=== PATIENT | male | born 1935 | race Two or more races ===

== ENCOUNTER 2023-06-20 08:55 | Outpatient (CLI) | payer OTHER | END 2023-06-20 09:12 | disposition home or self-care (01) | LOC: SONOGRAMA 08:55 | PROVIDERS: ATTEND Anesthesiology | DX: N40.1 Benign prostatic hyperplasia with lower urinary tract symptoms (principal) ==

== ENCOUNTER 2023-07-11 14:25 | Outpatient (CLI) | payer OTHER | END 2023-07-11 14:37 | disposition home or self-care (01) | LOC: TOM 14:25 | PROVIDERS: ATTEND Urology | DX: C67.1 Malignant neoplasm of dome of bladder (principal) ==

== ENCOUNTER 2023-09-24 11:36 | Emergency (ER) | payer OTHER ==
[~2023-09-24] VITALS: Ht 172.7 cm; Wt 79.4 kg
[2023-09-24] MEDS ORDERED: LOSARTAN POTASS50 MG PO (12:00)
[2023-09-24] MEDS ORDERED: CALTRATE 600 +1 EAC1 PO (12:00)
[2023-09-24] MEDS ORDERED: ELIQUIS5 MG PO (12:00)
[2023-09-24] MEDS ORDERED: PANTOPRAZOLE SO40 M2 PO (12:00)
[2023-09-24] MEDS ORDERED: CRESTOR5 MG PO (12:01)
[2023-09-24] MEDS ORDERED: DULOXETINE HCL40 MG PO (12:01)
[2023-09-24] MEDS ORDERED: LEVOTHYROXINE13 MCG PO (12:01)
[2023-09-24] MEDS ORDERED: AMLODIPINE-OLM1 EAC2 PO (12:02)
[2023-09-24] MEDS ORDERED: HYDRODIURIL12.5 MG PO (12:02)
[2023-09-24 13:07] LABS: HEMATOCRIT 34.3 % (39.0-48.0); HEMOGLOBIN 11.6 g/dL (13-16.00); MEAN CELL VOLUME 93.4 fL (80.0-100.00); MEAN CORPUSCULAR HEMOGLOBIN 31.6 pg (27.00-32.0); MEAN CORPUSCULAR HGB CONC 33.9 g/dl (32.0-36.0); PLATELET COUNT 328 K/uL (150-450); RED BLOOD COUNT 3.67 M/uL (4.00-6.00); RED CELL DISTRIBUTION WIDTH 13.7 % (11.5-14.5)
== END 2023-09-24 15:50 | disposition home or self-care (01) ==
LOC: ER 11:37
PROVIDERS: General Practice
DX: S50.01XA Contusion of right elbow, initial encounter (principal); S70.01XA Contusion of right hip, initial encounter; S00.93XA Contusion of unspecified part of head, initial encounter; W19.XXXA Unspecified fall, initial encounter; Y93.89 Activity, other specified; Y92.89 Other specified places as the place of occurrence of the external cause; Y99.8 Other external cause status; I10 Essential (primary) hypertension

== ENCOUNTER 2023-10-12 10:18 | Outpatient (CLI) | payer OTHER ==
[~2023-10-12 10:18] MED LIST: AMLODIPINE-OLM1 EAC2 PO; CALTRATE 600 +1 EAC1 PO; CRESTOR5 MG PO; DULOXETINE HCL40 MG PO; ELIQUIS5 MG PO; HYDRODIURIL12.5 MG PO; LEVOTHYROXINE13 MCG PO; LOSARTAN POTASS50 MG PO; PANTOPRAZOLE SO40 M2 PO
== END 2023-10-12 10:19 | disposition home or self-care (01) ==
LOC: NUCLEAR 10:18
PROVIDERS: ATTEND Ophthalmology Glaucoma Specialist
DX: R22.42 Localized swelling, mass and lump, left lower limb (principal)